=== PATIENT | female | born 1945 | race Hispanic/Latino ===

== ENCOUNTER 2018-04-26 10:35 | Day surgery (SDC) | payer MEDICARE ==
[~2018-04-26] VITALS: Ht 152.4 cm; Wt 62.6 kg
[~2018-04-26 10:35] MED LIST: SODIUM CHLORIDE 0.9% 1000ML 1,000 ML IV ONE
[2018-04-26 11:09] VITALS: BP 135/60
[2018-04-26] MEDS ORDERED: METO25TA6 PO (11:39)
[2018-04-26] MEDS ORDERED: URSO250T11 PO (11:39)
[2018-04-26] MEDS ORDERED: ATOR40TA71 PO (11:39)
[2018-04-26] MEDS ORDERED: TICA60TA PO (11:39)
[2018-04-26] MEDS ORDERED: [UNRECOGNIZED DRUG - CODE] IM (11:39)
[2018-04-26] MEDS ORDERED: ESOM20CA39 PO (11:39)
[2018-04-26] MEDS ORDERED: RANO500T3 PO (11:39)
[2018-04-26] MEDS ORDERED: FURO40TA5 PO (11:39)
[2018-04-26] MEDS ORDERED: ASPI-555 PO (11:39)
[2018-04-26] MEDS ORDERED: PROPOFOL 10 MG/ML 20ML VIAL IV ONE (11:59)
[2018-04-26 12:21] VITALS: BP 117/54
[2018-04-26 12:25] VITALS: BP 117/64
[2018-04-26 12:30] VITALS: BP 125/63
[2018-04-26 12:35] VITALS: BP 148/60
== END 2018-04-26 12:54 | disposition home or self-care (01) ==
LOC: DAH 10:35 → ENDO 10:35
PROVIDERS: ATTEND Internal Medicine
DX: K31.89 Other diseases of stomach and duodenum (principal); K44.9 Diaphragmatic hernia without obstruction or gangrene; Z86.010 Personal history of colon polyps; Z79.899 Other long term (current) drug therapy; H40.9 Unspecified glaucoma; I10 Essential (primary) hypertension; E78.00 Pure hypercholesterolemia, unspecified; M81.0 Age-related osteoporosis without current pathological fracture; K74.60 Unspecified cirrhosis of liver; Z90.710 Acquired absence of both cervix and uterus; Z98.890 Other specified postprocedural states; K21.0 Gastro-esophageal reflux disease with esophagitis; Z88.8 Allergy status to other drugs, medicaments and biological substances
CPT/HCPCS: 43237; 93005; A4606; J2704; J7030; 43259